=== PATIENT | female | born 1960 | race Caucasian/White ===

== ENCOUNTER 2018-10-25 16:36 | Emergency (ER) | payer SELFPAY ==
[2018-10-25 16:56] VITALS: BP 117/78
--- NOTE | 2018-10-25 17:05 | UC ---
Lower Extremity/Ankle HPI - HPI Summary HPI Summary: Twisted left ankle in [place] the [email or web address] [place]--has been walking on ankle/foot - History of Current Complaint Chief Complaint: UCLowerExtremity Stated Complaint: ANKLE INJURY Time Seen by Provider: 10/25/18 16:56 Hx Obtained From: Patient ?: No Onset/Duration: Sudden Onset, Lasting Hours Pain Intensity: 2 Pain Scale Used: 0-10 Numeric Aggravating Factor(s): Standing, Ambulation Alleviating Factor(s): Rest, Elevation Able to Bear Weight: Yes - Allergies/Home Medications Allergies/Adverse Reactions: Allergies Allergy/AdvReac Type Severity Reaction Status Date / Time cortisone otic solution Allergy makes Uncoded 10/25/18 16:58 swimmer's ear worse PMH/Surg Hx/FS Hx/Imm Hx Previously Healthy: No Endocrine History: Diabetes, Dyslipidemia Psychological History: Depression - Surgical History Surgical History: Yes Surgery Procedure, Year, and Place: umbilical hernia; D&C; wisdom teeth, APENDECTOMY - Family History Known Family History: Positive: None - Social History Occupation: Employed Full-time Lives: With Family Alcohol Use: None Substance Use Type: None Smoking Status (MU): Never Smoked Tobacco - Immunization History Most Recent Influenza Vaccination: 2014 Most Recent Tetanus Shot: 2014 Most Recent Pneumonia Vaccination: NA Review of Systems All Other Systems Reviewed And Are Negative: Yes Constitutional: Positive: Negative Skin: Positive: Negative Eyes: Positive: Negative ENT: Positive: Negative Respiratory: Positive: Negative Cardiovascular: Positive: Negative Gastrointestinal: Positive: Negative Genitourinary: Positive: Negative Motor: Positive: Negative Neurovascular: Positive: Negative Musculoskeletal: Positive: Arthralgia - left ankle pain Neurological: Positive: Negative Psychological: Positive: Negative Is Patient Immunocompromised?: No Physical Exam Triage Information Reviewed: Yes Appearance: Well-Appearing, No Pain Distress, Well-Nourished Vital Signs: Initial Vital Signs Temp 98.4 F 10/25/18 16:52 Pulse 72 10/25/18 16:52 Resp 16 10/25/18 16:52 BP 117/78 10/25/18 16:52 Pulse Ox 98 10/25/18 16:52 Vital Signs Reviewed: Yes Eye Exam: Normal Eyes: Positive: Conjunctiva Clear ENT Exam: Normal ENT: Positive: Normal ENT inspection, Hearing grossly normal. Negative: Trismus , Muffled voice, Hoarse voice Dental Exam: Normal Neck exam: Normal Neck: Positive: Supple, Nontender, No Lymphadenopathy Respiratory Exam: Normal Respiratory: Positive: Chest non-tender, Lungs clear, Normal breath sounds, No respiratory distress, No accessory muscle use Cardiovascular Exam: Normal Cardiovascular: Positive: RRR, No Murmur, Pulses Normal, Brisk Capillary Refill Musculoskeletal Exam: Normal Musculoskeletal: Positive: Strength Intact, ROM Intact, No Edema Neurological Exam: Normal Neurological: Positive: Alert, Muscle Tone Normal Psychological Exam: Normal Skin Exam: Normal Diagnostics - Radiology No standard instances Radiology Interpretation Completed By: Radiologist - no evidence of fracture Lower Extremity Course/Dx - Course Course Of Treatment: cam boot, ibuprofen, rice, follow with orthopedic this week if no resolved - Differential Dx/Diagnosis Provider Diagnosis: Left ankle sprain Discharge - Sign-Out/Discharge Documenting (check all that apply): Patient Departure All imaging exams completed and their final reports reviewed: Yes - Discharge Plan Condition: Stable Disposition: HOME Patient Education Materials: Ibuprofen (By mouth), Ankle Sprain (ED), R.I.C.E. Treatment (ED) Referrals: Viktor Carpenter MD [Medical Doctor] - If Needed - Billing Disposition and Condition Condition: STABLE Disposition: Home - Attestation Statements Provider Attestation: Per institutional requirements, I have reviewed the chart, however, I was not consulted specifically or made aware of this patient by the midlevel provider. I did not personally evaluate, interact with , or disposition this patient.
== END 2018-10-25 17:50 | disposition home or self-care (01) ==
LOC: UCEAST 16:36
DX: S93.402A Sprain of unspecified ligament of left ankle, initial encounter (principal); X50.0XXA Overexertion from strenuous movement or load, initial encounter; Y92.524 Gas station as the place of occurrence of the external cause; E11.9 Type 2 diabetes mellitus without complications; E78.5 Hyperlipidemia, unspecified; F32.9 Major depressive disorder, single episode, unspecified
CPT/HCPCS: 99211; G0463

== ENCOUNTER 2019-01-24 18:28 | Emergency (ER) | payer OTHER ==
--- NOTE | 2019-01-24 18:45 | ED ---
Palpitations / Dysrhythmia - HPI Summary HPI Summary: Patient is a 58 y/o F presenting to [facility] with chief complaints of palpitations. Associated Sx include dizziness, anxiety and LUU. CP and SOB are denied. Patient reports that palpitations onset yesterday, 01/23/19. Palpitations are characterizes as fast, racing. She notes two previous similar episodes and states that she had been dehydrated both of these times. Patient claims that she has been drinking fluids, pedialyte and does not believe that she is dehydrated. However, her palpitations persisted into today, 01/24/19 and worsened throughout today. Nothing is noted to aggravate/alleviate Sx. PMHx of diabetes is noted, she was originally on Metformin but was placed on Jardiance this 2018. She is also on Atorvastatin, Celexa, and iron supplement. No Hx of HTN is noted. She denies tobacco, alcohol, and coffee usage. PCP is Dr. Shahid. Home medications and allergies are reviewed. - History of Current Complaint Chief Complaint: EDDysrhythmPalp Time Seen by Provider: 01/24/19 18:38 Hx Obtained From: Patient Onset/Duration: Lasting Days, Still Present Timing: Constant Character: Fast Aggravating: Nothing Alleviating: Nothing Associated Signs & Symptoms: Dizzy - Allergy/Home Medications Allergies/Adverse Reactions: Allergies Allergy/AdvReac Type Severity Reaction Status Date / Time cortisone otic solution Allergy makes Uncoded 10/25/18 16:58 swimmer's ear worse PMH/Surg Hx/FS Hx/Imm Hx Endocrine/Hematology History: Reports: Hx Diabetes - DM II Denies: Hx Thyroid Disease Comment Only: Other Endocrine/Hematological Disorders - uterine fibroids Cardiovascular History: Denies: Hx Congestive Heart Failure, Hx Hypertension Respiratory History: Denies: Hx Asthma, Hx Chronic Obstructive Pulmonary Disease (COPD) GI History: Reports: Other GI Disorders - hernia repair Denies: Hx Ulcer Psychiatric History: Reports: Hx Anxiety - Cancer History Hx Chemotherapy: No Hx Radiation Therapy: No - Surgical History Surgery Procedure, Year, and Place: umbilical hernia; D&C; wisdom teeth, APENDECTOMY Infectious Disease History: No Infectious Disease History: Reports: Hx Shingles Denies: Hx Clostridium Difficile, Hx Hepatitis, Hx Human Immunodeficiency Virus (HIV), History Other Infectious Disease, Traveled Outside the [place] in Last 30 Days - Family History Known Family History: Positive: Other - GI issues - Social History Alcohol Use: None Substance Use Type: Reports: None Smoking Status (MU): Never Smoked Tobacco Review of Systems Positive: Palpitations. Negative: Chest Pain Negative: Shortness Of Breath Neurological: Other - positive - dizziness Positive: Headache Positive: Anxious All Other Systems Reviewed And Are Negative: Yes Physical Exam - Summary Physical Exam Summary: Appearance: The patient is well-nourished in no acute distress and in no acute pain. Skin: The skin is warm and dry, and skin color reflects adequate perfusion. HEENT: The head is normocephalic and atraumatic. The pupils are equal and reactive. The conjunctivae are clear and without drainage. Nares are patent and without drainage. Mouth reveals moist mucous membranes, and the throat is without erythema and exudate. The external ears are intact. The ear canals are patent and without drainage. The tympanic membranes are intact. Neck: The neck is supple with full range of motion and non-tender. There are no carotid bruits. There is no neck vein distension. Respiratory: Chest is non-tender. Lungs are clear to auscultation and breath sounds are symmetrical and equal. Cardiovascular: Patient is irregularly irregular and tachycardic. There is no murmur or rub auscultated. There is no peripheral edema and pulses are symmetrical and equal. Abdomen: The abdomen is soft and non-tender. There are normal bowel sounds heard in all four quadrants and there is no organomegaly palpated. Musculoskeletal: There is no back tenderness noted. Extremities are non-tender with full range of motion. There is good capillary refill. There is no peripheral edema or calf tenderness elicited. Neurological: Patient is alert and oriented to person, place and time. The patient has symmetrical motor strength in all four extremities. Cranial nerves are grossly intact. Deep tendon reflexes are symmetrical and equal in all four extremities. Psychiatric: The patient has an appropriate affect and does not exhibit any anxiety or depression. Triage Information Reviewed: Yes Vital Signs On Initial Exam: Initial Vitals Temp Pulse Resp BP Pulse Ox 98 F 140 20 154/111 98 01/24/19 18:29 01/24/19 18:29 01/24/19 18:29 01/24/19 18:29 01/24/19 18:29 Vital Signs Reviewed: Yes Procedures - Sedation Patient Received Moderate/Deep Sedation with Procedure: No Diagnostics - Vital Signs Vital Signs Temp Pulse Resp BP Pulse Ox 01/24/19 18:29 98 F 140 20 154/111 98 - Laboratory Result Diagrams: 01/24/19 19:19 01/24/19 19:56 Lab Statement: Any lab studies that have been ordered have been reviewed, and results considered in the medical decision making process. - EKG 1836 Cardiac Rate: Other Rate - aflutter with rate of 131 BPM EKG Rhythm: Atrial Flutter Summary of EKG Findings: EKG showed atrial flutter with RVR. This EKG was reviewed and interpreted by Dr. Knapp. 1926 Cardiac Rate: NL - rate of 63 BPM EKG Rhythm: Sinus Rhythm ST Segment: Normal Ectopy: None EKG Comparison: Other - patient is no longer in [place] [address]301/24/19 EKG Summary of EKG Findings: EKG showed NSR with rate of 63 BPM, normal ST, no ectopy, no STEMI. Patient is no longer in atrial flutter. This EKG was reviewed and interpreted by Dr. Knapp. Re-Evaluation - Re-Evaluation First Eval Re-Evaluation Time: 19:26 Change: Improved Comment: Patient appears to have converted to NSR with medications. EKG to be obtained. Course/Dx - Course Course Of Treatment: Ms. Courtney presented in atrial fibrillation with a rapid ventricular response with minor symptomatology. We gave her dose of adenosine to confirm the diagnosis and were loading her with Cardizem when she converted to normal sinus. The medications were stopped at that point and she was observed on the monitor while labs were obtained. Her potassium was low normal at 3.6 and she was supplemented orally. I recommended follow-up with her PCP for further evaluation and possible cardiology consult her she does not use caffeine in any significant form of low she does eat some chocolate. - Diagnoses Provider Diagnoses: Atrial fibrillation with RVR Discharge ED - Sign-Out/Discharge Documenting (check all that apply): Patient Departure - discharge - Discharge Plan Condition: Stable Disposition: HOME Patient Education Materials: A-fib (Atrial Fibrillation) (ED) Referrals: Daniel Shahid MD [Primary Care Provider] - 3 Days Additional Instructions: PLEASE RETURN TO ED FOR ANY NEW OR WORSENING SYMPTOMS. PLEASE FOLLOW UP WITH YOUR PRIMARY CARE PHYSICIAN WITHIN 1-3 DAYS. - Billing Disposition and Condition Condition: STABLE Disposition: Home - Attestation Statements Document Initiated by Nanibshashi: Yes Documenting Scribe: LAURA CORRALES Provider For Whom [place] is Documenting (Include Credential): BRET KNAPP MD Scribe Attestation: ILAURA, scribed for BRET KNAPP MD on 01/25/19 at 1027. Scribe Documentation Reviewed: Yes Provider Attestation: The documentation as recorded by the LAURA mai accurately reflects the service I personally performed and the decisions made by me, BRET KNAPP MD Status of Scribe Document: Viewed
[2019-01-24] MEDS ORDERED: Adenosine* 3 MG/ML VIAL IV PUSH ONE (18:51)
[2019-01-24] MEDS ORDERED: Diltiazem IV BAG* D5W Premix 125 MG/125 ML BAG IV ONE (19:05)
[2019-01-24] MEDS ORDERED: Diltiazem IV push/loading dose 5 MG/ML 5 ML vial (25 mg) IV SLOW PU ONE (19:05)
[2019-01-24 19:26] LABS: ABS Basophils 0.1 10^3/ul (0-0.2); ABS Eosinophils 0.1 10^3/ul (0-0.6); ABS Lymphocytes 1.7 10^3/ul (1.0-4.8); ABS Monocytes 0.5 10^3/ul (0-0.8); ABS Neutrophils 2.6 10^3/ul (1.5-7.7); Hematocrit 42 % (35-47); Hemoglobin 14.4 g/dL (12.0-16.0); Lymphocyte % 35.5 %; Mean Corpuscular HGB Conc 34 g/dL (31-36); Mean Corpuscular Hemoglobin 29 pg (27-31); Mean Corpuscular Volume 86 fL (80-97); Mean Platelet Volume 8.6 fL (7.4-10.4); Platelet Count 225 10^3/uL (150-450); Red Cell Distribution Width 13 % (10-15); White Blood Count 4.9 10^3/uL (3.5-10.8)
[2019-01-24 19:43] LABS: ALT 15 U/L (7-52); Albumin 3.7 g/dL (3.2-5.2); Albumin/Globulin Ratio 1.9 (1-3); Alkaline Phosphatase 64 U/L (34-104); BUN/Creatinine Ratio 30.4 (8-20); Blood Urea Nitrogen 17 mg/dL (6-24); CO2 Carbon Dioxide 23 mmol/L (22-32); Calcium 8.7 mg/dL (8.6-10.3); Chloride 109 mmol/L (101-111); EGFR African American 133.6 (>60); EGFR Non-African American 110.4 (>60); Globulin 1.9 g/dL (2-4); Glucose 224 mg/dL (70-100); Sodium 141 mmol/L (135-145); Total Protein 5.6 g/dL (6.4-8.9)
--- OUTSIDE RECORDS SUMMARY | 2019-01-24 19:44 | XMS REPORT | Continuity of Care Document ---
:1960 External Reference #:[id number] Author Name Mayito Kimballleigh ann BHAGAT, DO Address [address] [place] [address] [place] [address] Care Team Providers Name Role Phone Daniel Shahid M.D. 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 Onset: 10/10/2011 Breast signs and symptoms Ken Young M.D. Onset: 10/10/2011 Social History Type Date Description Comments Sex Unknown Tobacco Use Start: Unknown Patient has never smoked Smoking Status Reviewed: 12/01/18 Patient has never smoked Allergies, Adverse Reactions, Alerts Description No Known Drug Allergies Medications Active Medications SIG Qnty Indications Ordering Provider Date Terconazole Apply to affected Mayito Kimballleigh ann BHAGAT, 12/01/2018 0.8% Cream area x 3 days DO Citalopram Hydrobromide Unknown Multivitamins Unknown Iron Supplement Unknown Jardiance Unknown Atorvastatin Calcium Unknown Vitamin D Unknown Medications Administered in Office Medication SIG Qnty Indications Ordering Provider Date PT SCRN Tbco Id as Non User Ken Young M.D. 07/30/2017 Injection Immunizations Description No Information Available Vital Signs Date Vital Result Comment 12/01/2018 10:31am BP Systolic 106 mmHg BP Diastolic 72 mmHg Height 63.75 inches 5'3.75" Weight 204.00 lb BMI (Body Mass Index) 35.3 kg/m2 Last Menstrual Period [id number] 4 Parity 3 07/30/2017 2:21pm BP Systolic 124 mmHg BP Diastolic 78 mmHg Height 63.75 inches 5'3.75" Weight 210.00 lb BMI (Body Mass Index) 36.3 kg/m2 Last Menstrual Period [id number] 4 Parity 3 Results Description No Information Available Procedures Date Code Description Status 04/24/2017 [id number] Mammogram Completed 09/05/2013 [id number] Colonoscopy Completed Medical Devices Description No Information Available Encounters Type Date Location Provider Dx Diagnosis Office Visit 12/01/2018 [facility] Mayito Robert JR, B37.3 Candidiasis of vulva 10:30a DO and vagina Assessments Date Code Description Provider 12/01/2018 B37.3 Candidiasis of vulva and vagina Mayito Robert JR, DO Plan of Treatment 12/01/2018 - Mayito Robert JR DOB37.3 Candidiasis of vulva and vaginaComments: yeast infectionTerazole 0.8% x 3 days Functional Status Description No Information Available Mental Status Description No Information Available Referrals Description No Information Available
[2019-01-24 19:45] LABS: Anion Gap 9 mmol/L (2-11); Troponin I 0.01 ng/mL (<0.04)
[2019-01-24 19:57] LABS: INR 1.16 (0.82-1.09)
[2019-01-24 20:28] LABS: TSH (Thyroid Stimulating Horm) 2.53 mcIU/mL (0.34-5.60)
[2019-01-24 21:31] LABS: Magnesium 1.7 mg/dL (1.9-2.7); Potassium Redraw 3.6 mmol/L (3.5-5.0)
[2019-01-24] MEDS ORDERED: Potassium Chlor TAB* 20 MEQ TAB.ER PO ONE (21:42)
[2019-01-24 21:54] VITALS: BP 114/74
== END 2019-01-24 21:53 | disposition home or self-care (01) ==
LOC: ED 18:28
DX: I48.20 Chronic atrial fibrillation, unspecified (principal); R00.2 Palpitations; E11.9 Type 2 diabetes mellitus without complications; R42 Dizziness and giddiness; F41.9 Anxiety disorder, unspecified; R51 Headache
CPT/HCPCS: 36415; 80053; 83605; 83735; 84443; 84484; 85025; 85610; 93005; 96374; 96375; 99284; A9270-GY; J0153